=== PATIENT | male | born 1960 | race Caucasian/White ===

== ENCOUNTER 2023-04-04 19:09 | Emergency (ER) | payer BC ==
[2023-04-04 19:27] VITALS: BP 142/91; PULSE 67
== END 2023-04-04 21:10 | disposition home or self-care (01) ==
LOC: JD.ED 19:09
DX: S80.01XA Contusion of right knee, initial encounter (principal); I10 Essential (primary) hypertension; Z91.041 Radiographic dye allergy status; Z79.899 Other long term (current) drug therapy; W01.0XXA Fall on same level from slipping, tripping and stumbling without subsequent striking against object, initial encounter; Y92.513 Shop (commercial) as the place of occurrence of the external cause
CPT/HCPCS: 73562-26-RT; 73562-RT; 99282; 99283